=== PATIENT | male | born 1960 | race Caucasian/White ===

== ENCOUNTER 2018-08-28 19:15 | Emergency (ER) | payer OTHER ==
[~2018-08-28] VITALS: Ht 180.3 cm; Wt 104.3 kg
[2018-08-28] MEDS ORDERED: LASIX40 MG (19:29)
[2018-08-28] MEDS ORDERED: JENTADUETO XR1 EACH (19:29)
[2018-08-28] MEDS ORDERED: ENTRESTO 24 MG1 EACH (19:29)
[2018-08-28] MEDS ORDERED: CARVEDILOL6.25 MG (19:30)
[2018-08-28] MEDS ORDERED: ALDACTONE25 MG (19:30)
== END 2018-08-28 20:55 | disposition home or self-care (01) ==
LOC: ER 19:15
DX: H10.89 Other conjunctivitis (principal)

== ENCOUNTER 2019-05-26 14:37 | Emergency (ER) | payer OTHER ==
[~2019-05-26] VITALS: Ht 180.3 cm; Wt 103.0 kg
[~2019-05-26 14:37] MED LIST: ALDACTONE25 MG; CARVEDILOL6.25 MG; ENTRESTO 24 MG1 EACH; JENTADUETO XR1 EACH; LASIX40 MG
== END 2019-05-26 16:04 | disposition home or self-care (01) ==
LOC: ER 14:37
DX: M43.6 Torticollis (principal)

== ENCOUNTER 2019-07-16 15:52 | Emergency (ER) | payer OTHER ==
[~2019-07-16] VITALS: Ht 180.3 cm; Wt 104.3 kg
[2019-07-16] MEDS ORDERED: METFORMIN HCL1000 M2 PO (16:18)
== END 2019-07-16 17:57 | disposition home or self-care (01) ==
LOC: ER 15:52
DX: J04.0 Acute laryngitis (principal)